=== PATIENT | female | born 2000 | race Caucasian/White ===

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

== ENCOUNTER 2019-08-13 10:32 | Emergency (ER) | payer MEDICAID, OTHER, SELFPAY ==
[~2019-08-13] VITALS: Ht 157.5 cm; Wt 50.0 kg
[2019-08-13] MEDS ORDERED: diphenhydrAMINE INJ 50MG/ML VIAL (J1200) IV STA (10:51)
[2019-08-13] MEDS ORDERED: METOCLOPRAMIDE INJ 10MG/2ML VIAL (J2765) IV ONE (11:00)
[2019-08-13] MEDS ORDERED: KETOROLAC 30 MG/ML VIAL (J1885) IV ONE (11:00)
[2019-08-13] MEDS ORDERED: NS 1,000 ML IV ONE (11:00)
[2019-08-13] MEDS ORDERED: TESS100C PO (12:09)
[2019-08-13 12:23] VITALS: BP 128/76
== END 2019-08-13 12:26 | disposition home or self-care (01) ==
LOC: M ED 10:32
DX: G43.909 Migraine, unspecified, not intractable, without status migrainosus (principal); J06.9 Acute upper respiratory infection, unspecified; B34.9 Viral infection, unspecified; F17.200 Nicotine dependence, unspecified, uncomplicated
CPT/HCPCS: 96361; 96374; 96375; 99284; J1200; J1885; J2765

== ENCOUNTER 2019-08-25 17:08 | Emergency (ER) | payer SELFPAY ==
[~2019-08-25] VITALS: Ht 157.5 cm; Wt 49.5 kg
[~2019-08-25 17:08] MED LIST: TESS100C PO
[2019-08-25] MEDS ORDERED: IBUPROFEN 600 MG TAB PO ONE (18:00)
[2019-08-25] MEDS ORDERED: IBUP-1022 PO (18:55)
[2019-08-25 19:05] VITALS: BP 114/73
--- NOTE | 2019-08-25 19:38 | REP ---
Right ankle series: Four views. History: Medial lateral pain. Injury in a fall. Findings: Four views of the right ankle show an intact ankle mortise. No fracture or subluxation is seen. Bones joints and soft tissues are unremarkable. Impression: Negative radiographs of the right ankle. Electronically Signed by Hank Thornton MD 08/25/2019 07:29 P
== END 2019-08-25 19:10 | disposition home or self-care (01) ==
LOC: M ED 17:08
DX: S93.401A Sprain of unspecified ligament of right ankle, initial encounter (principal); M54.5 Low back pain; V00.131A Fall from skateboard, initial encounter; Y92.89 Other specified places as the place of occurrence of the external cause